=== PATIENT | male | born 1960 | race Caucasian/White ===

== ENCOUNTER → 2019-05-27 | Outpatient (CLI) | payer OTHER ==
[2019-05-27 09:43] LABS: HEMATOCRIT 47.2 % (42.0-52.0); HEMOGLOBIN 15.8 gm/dL (14.0-18.0); MCH 31.2 pg (26.0-34.0); MCHC 33.4 g/dL (28.0-37.0); MCV 93.3 fL (80.0-100.0); RBC 5.06 mil/uL (4.50-6.00); RDW 14.1 % (10.5-14.5); WBC 7.3 thou/uL (4.0-11.0)
[2019-05-27 09:56] LABS: ALBUMIN 3.5 g/dL (3.4-5.0); CALCIUM 8.4 mg/dL (8.5-10.1); CREATININE 1.3 mg/dL (0.7-1.3); POTASSIUM 4.2 mmol/L (3.5-5.1); TOTAL BILIRUBIN 0.8 mg/dL (<0.1-1.0); TOTAL PROTEIN 6.9 g/dL (6.4-8.2)
== END ==
LOC: CAT 09:15
PROVIDERS: Internal Medicine Cardiovascular Disease
DX: I48.91 Unspecified atrial fibrillation (principal); Z79.899 Other long term (current) drug therapy

== ENCOUNTER 2019-06-03 05:54 | Observation (INO) | payer OTHER ==
[2019-06-03] VITALS (7 sets, daily range): BP systolic 126–140; BP diastolic 76–90
[~2019-06-03] VITALS: Ht 182.9 cm; Wt 109.6 kg
[2019-06-03] MEDS ORDERED: CLONAZEPAM 0.50.5 M1 PO (07:11)
[2019-06-03] MEDS ORDERED: MULTAQ 400 MG400 MG PO (07:11)
[2019-06-03] MEDS ORDERED: XARELTO20 MG PO (07:12)
[2019-06-03] MEDS ORDERED: LOPRESSOR50 PO (07:12)
[2019-06-03] MEDS ORDERED: HYDROCODON-ACE1 EAC7 PO (07:12)
[2019-06-03 07:27] LABS: ABSOLUTE NEUTROPHILS 4.4 thou/uL (1.4-8.2); BASOPHILS 0.6 % (0.0-2.0); EOSINOPHILS 1.4 % (0.0-3.0); HEMATOCRIT 45.8 % (42.0-52.0); HEMOGLOBIN 15.1 gm/dL (14.0-18.0); LYMPHOCYTES 26.8 % (24.0-44.0); MCH 30.8 pg (26.0-34.0); MCHC 33.1 g/dL (28.0-37.0); MCV 93.1 fL (80.0-100.0); MONOCYTES 8.9 % (1.0-8.0); PLATELET COUNT 166 thou/uL (150-400); POLYS 62.3 % (36.0-66.0); RBC 4.92 mil/uL (4.50-6.00); RDW 14.1 % (10.5-14.5); WBC 7.1 thou/uL (4.0-11.0)
[2019-06-03 07:32] LABS: CALCIUM 8.7 mg/dL (8.5-10.1); CREATININE 1.2 mg/dL (0.7-1.3)
[2019-06-03 07:36] LABS: ALBUMIN 3.5 g/dL (3.4-5.0); TOTAL BILIRUBIN 0.6 mg/dL (<0.1-1.0); TOTAL PROTEIN 7.3 g/dL (6.4-8.2)
[2019-06-03 07:42] LABS: APTT 25.6 Seconds (24.5-32.8); PROTIME 10.5 Seconds (9.3-11.4)
--- NOTE | 2019-06-03 13:45 | NUR ---
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 VSS. A&OX4. LEROY IN PLACE. MONITORING RT GROIN SITE. NO C/O PAIN EXCECT FOR PAIN D/T LEROY. NO PAIN MEDS REQUESTED. ADMIT ASSESSMENT CHARTED. GIRLFRIEND AT BEDSIDE. ON BEDREST UNTIL 1740. WILL CONTINUE TO MONITOR AND FOLLOW POC.
--- NOTE | 2019-06-03 16:40 | NUR ---
rec consult met with patient, s/o at bedside. Patient admits for ablation. 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 He is on disability for chemo. All needs on one level in home with one step to enter. PCP Dr Panchal out of [place]. Patient also has neuropathy and reports independent with adls but slow. patient has prescription coverage but reports his xeralto went from $90 for 3 months to $300 for 3 months. cont to follow for dc planning.
--- NOTE | 2019-06-03 17:56 | NUR ---
PT CONTINUES TO BE ALERT AND ORIENTED. SIGNIFICANT OTHER AT BEDSIDE THROUGHOUT DAY. LEROY CATHETER CAUSING PT PAIN, UNABLE TO URINATE WITHOUT FEELING PAIN. LEROY REMOVED- PT FELT RELIEF. HAS URINATED SINCE LEROY REMOVAL. CARDIOLOGY CERTIFIED PROFESSIONAL MIDWIFE NOTIFIED. RIGHT GROIN SITE WITH DRIED DRAINAGE DURING GROIN CHECKS. AT APPROX 1430 GROIN BEGAN TO BLEED. MANUAL PRESSURE HELD FOR 20 MINUTES. DRESSING CHANGED. CARDIOLOGY NOTIFIED. NO ORDERS RECEIVED. Nikole MEJIA NP ROUNDED ON PT, ASSESSED GROIN SITE. NO HEMATOMA. AT APPROX 1700 GROIN BEGAN TO HAVE MINIMAL BLEEDING. MANUAL PRESSURE HELD FOR 15 MINUTES. SITE REMAINED SOFT, NO HEMATOMA FORMATION. GROIN CHECKS AT 1735 AND 1754- GROIN DRESSING REMAINS DRY, DRIED DRAINAGE. NO HEMATOMA. NO BLEEDING. PT SINUS RHYTHM ON MONITOR. CARDIOLOGY NOTIFIED ABOUT 1700 XARELTO AND IF MED SHOULD BE GIVEN WITH BLEEDING OF GROIN X2 THIS SHIFT. TELEPHONE ORDER RECEIVED FROM Nikole MEJIA TO HOLD XARELTO UNTIL 1999, AND IF BLEEDING SHOULD OCCUR, NOTIFY CARDIOLOGY. PT CURRENTLY RESTING IN BED, BEDREST CONTINUES. GROIN DRESSING REMAINS DRY, WITH DRY DRAINAGE. NO HEMATOMA. DENIES NEEDS AT THIS TIME. WILL CONTINUE TO MONITOR GROIN SITE, AND ASSESS NEEDS.
[2019-06-04 04:59] VITALS: BP 113/57
[2019-06-04 05:39] LABS: ABSOLUTE NEUTROPHILS 11.1 thou/uL (1.4-8.2); BASOPHILS 0.1 % (0.0-2.0); HEMATOCRIT 43.9 % (42.0-52.0); LYMPHOCYTES 7.5 % (24.0-44.0); MCHC 31.9 g/dL (28.0-37.0); MONOCYTES 6.6 % (1.0-8.0); PLATELET COUNT 162 thou/uL (150-400); POLYS 85.8 % (36.0-66.0); RBC 4.66 mil/uL (4.50-6.00); RDW 14.4 % (10.5-14.5)
--- NOTE | 2019-06-04 06:03 | NUR ---
ASSUME CARE 1900. PT/VITALS STABLE. DENIES ANY PAIN. TOLERATES ACTIVITY WELL. UP AD JORDAN. NOTED SOME BLEEDING THROUGH THE NIGHT. DRESSING COMPLETELY SATURATED BY MORNING, BUT NO HEMATOMA/BRUISING NOTED. CHANGED DRESSING BEFORE PATIENT WALKED THE HALLS IN THE AM AND RECHECKED WITH NO BLEEDING NOTED ON DRESSING. ASSESSMENT CHARTGED. PROGRESSING WELL WITH POC. PLAN IS POSSIBLE DISCHARGE TODAY. WILL CONTINUE TO MONITOR AND FOLLOW [facility] POC
[2019-06-04 08:16] VITALS: BP 113/57
[2019-06-04 08:23] VITALS: BP 124/65
--- NOTE | 2019-06-04 09:40 | NUR ---
AAOX4. CALM, COOPERATIVE. SPOUSE AT BEDSIDE. DENIES CP. DR. GARY HERE, DISCHARGING PATIENT. DISCHARGE INSTRUCTIONS GIVEN.
[2019-06-04 09:49] VITALS: BP 113/57
--- NOTE | 2019-06-23 15:55 | P ---
[facility] [place] [address] PROCEDURE REPORT Name: WILFREDO LOCK NICOLE Room #: 202-P [facility] Jovanna Martin#: [id number] Admission: 06/03/19 Attend Phys: Mustapha Stafford MD Discharge: 06/04/19 Date of : 58 Report #: [id number] THIS REPORT FOR: //name// CC: Mustapha Panhcal PREOPERATIVE DIAGNOSIS: Atrial fibrillation. POSTOPERATIVE DIAGNOSIS: Atrial fibrillation. PROCEDURES PERFORMED: 1. Atrial fibrillation ablation, CPT code 10143. 2. 3D mapping EP, CPT code 24195. 3. Arterial line placement, CPT code 82388. 4. Intracardiac echo, CPT code 01849. 5. Focal ablation, CPT code 93247. ANESTHESIA: The patient underwent general anesthesia with no anesthesia related complications. DESCRIPTION OF PROCEDURE: The patient underwent informed consent. We discussed the details of the procedure including the risks, which include but not limited to bleeding, vascular damage, cardiac perforation as well as stroke or MN. He understood these risks and is willing to proceed. The patient was brought to the EP laboratory in a fasting and sedated state, prepped and draped in a sterile fashion. I obtained access to the right femoral vein x 3, placing an 8, 9 and 7-Qatari short sheath using the modified Seldinger technique. Next, under fluoroscopy, a decapolar catheter was placed in the coronary sinus and ICE catheter was placed into the right atrium. Next, a detailed 3D geometry of the left atrium was created using CARTO sound. This was merged with the cardiac CT scan. This showed that the patient had evidence of a left common ostium and two right pulmonary veins. Within the left common ostium, there was a superior and inferior branch. In the right inferior pulmonary vein, there was also evidence of a superior and an inferior branch. At baseline, the patient was in atrial fibrillation with a ventricular cycle length of 715 milliseconds, QRS duration 63 milliseconds, QT interval 350 milliseconds. The patient was systemically heparinized and transseptal was performed using an SL1 sheath and a [place] needle. This transseptal was straightforward. I then exchanged for the cryo sheath and placed a Lasso catheter into the left atrium and created a detailed 3D voltage map of the left atrium, which showed activity of the left and right-sided pulmonary veins. Next, I started by isolating the left common ostium. I performed 2 freezes in the superior branch and 2 freezes in the inferior branch. In the superior branch, I performed a 4-minute freeze and the vein isolated within 80 seconds. I performed an additional 4-minute freeze to ensure that this remained isolated. I then turned my attention to the left inferior pulmonary branch within the [address] [address] PROCEDURE REPORT Name: WILFREDO LOCK Room #: 202-P [facility] Martin#: [id number] Admission: 06/03/19 Attend Phys: Mustapha Stafford MD Discharge: 06/04/19 Date of : 58 Report #: [id number] common ostium. I performed two 4-minute freezes. The vein isolated within 80 seconds of the second freeze in this lower branch. I then turned my attention to the right superior pulmonary vein. I performed a 105 second freeze and this vein isolated within 20 seconds. I came off early as this vein was getting quite cold. I then came on again and performed an additional 107 second freeze and came off again as the temperature cold. There was never any phrenic nerve compromise with the phrenic nerve pacing performed from the decapolar catheter placed in the subclavian vessel. Next, I turned my attention to the right inferior pulmonary vein. This vein was somewhat challenging as it had two branches that needed to be isolated. I performed 3 freezes in the upper branch and 3 freezes in the lower branch, and during the last freeze, the vein isolated within 26 seconds. The last freeze was of 4 minutes' duration. I then decided to perform a roofline. I performed 3 freezes along the posterior roof anchored from the left common ostium, each freeze was 180 seconds of duration. I then performed 3 freezes of the roof anchored from the right superior pulmonary vein and again these freezes were each of 3 minutes duration. The patient then underwent successful 200 joule synchronized cardioversion with baptism of sinus rhythm. A detailed voltage map was then created, which showed that we had created a wide circumferential ablation of the left common ostium of the left-sided veins and we had also created evidence of a roofline with diminished signals along the posterior roof region. Of note, I did have to obtain arterial access for the procedure for arterial blood pressure monitoring. Post-ablation, the patient was in sinus rhythm with a sinus cycle length of 815 milliseconds, LA interval 170 milliseconds, QRS duration 70 milliseconds, QT interval 399 milliseconds. As such, using intracardiac ultrasound, I verified there was no pericardial effusion. Once the ACT was within acceptable range, catheters and sheaths were pulled and hemostasis was obtained. The patient awoke neurologically and hemodynamically intact. No complications and no significant bleeding. CONCLUSIONS: 1. Successful AFib ablation with wide circumferential ablation of the pulmonary veins. 2. Successful creation of a roofline. <ELECTRONICALLY SIGNED> By: Mustapha Stafford MD 06/23/19 1555 1553 6 Mustapha Stafford MD /anabelle
--- NOTE | 2019-08-03 14:02 | H ---
[facility] [place] [address] HISTORY AND PHYSICAL Name: WILFREDO LOCK NICOLE Room #: 202-P [facility] Jovanna Martin#: [id number] Admission: 06/03/19 Attend Phys: Mustapha Stafford MD Discharge: 06/04/19 Date of : 58 Report #: [id number] THIS REPORT FOR: //name// CC: Mustapha Stafford Landon Zamanmons DATE OF SERVICE: 06/03/2019 HISTORY OF PRESENT ILLNESS: The patient is a 59-year-old with history of atrial fibrillation, nonischemic cardiomyopathy, here for ablation. PAST MEDICAL HISTORY: Please see my note from 04/28/2019. SOCIAL HISTORY: Unchanged. FAMILY HISTORY: Unchanged. MEDICATIONS AND ALLERGIES: Have been reviewed. PHYSICAL EXAMINATION: VITAL SIGNS: Stable. GENERAL: No acute distress. CARDIOVASCULAR: Heart is irregularly irregular. LUNGS: Clear to auscultation bilaterally. ABDOMEN: Soft, nontender. EXTREMITIES: No clubbing, cyanosis, or edema. ASSESSMENT: Atrial fibrillation. PLAN: We will proceed with an ablation as previously documented. <ELECTRONICALLY SIGNED> By: Mustapha Stafford MD 08/03/19 1402 1226 1234 Mustapha Stafford MD /nt
== END 2019-06-04 10:12 | disposition home or self-care (01) ==
LOC: CATH 05:54 → 2N 12:00 → CATH 14:13 → ENTRNSPT 06-04 10:06 → EDTRNSPTSTS 06-04 10:09 → 2N 06-04 10:12
PROVIDERS: Nurse Practitioner; ADMIT Internal Medicine Cardiovascular Disease
DX: I48.0 Paroxysmal atrial fibrillation (principal); Z79.899 Other long term (current) drug therapy
CPT/HCPCS: 62110; 62900; 65020; 65040; 65131; 70005